=== PATIENT | male | born 1960 | race Caucasian/White ===

== ENCOUNTER → 2016-07-11 | Outpatient (CLI) | payer OTHER | LOC: EXRD 14:22 | DX: M54.6 Pain in thoracic spine (principal); R93.8 Abnormal findings on diagnostic imaging of other specified body structures; M47.894 Other spondylosis, thoracic region; M43.8X4 Other specified deforming dorsopathies, thoracic region | CPT/HCPCS: 71020; 72070 ==

== ENCOUNTER → 2020-03-03 | Outpatient (CLI) | payer MEDICARE, OTHER ==
[2020-03-03 09:58] LABS: RED BLOOD COUNT 5.59 M/UL (4.20-5.50); WHITE BLOOD COUNT 13.4 K/UL (4.5-11.0)
[2020-03-03 10:31] LABS: BUN/CREATININE RATIO 11 (0-10)
== END ==
LOC: LAB 09:34
PROVIDERS: Family Medicine
DX: I10 Essential (primary) hypertension (principal); E78.2 Mixed hyperlipidemia; R73.9 Hyperglycemia, unspecified
CPT/HCPCS: 36415; 80053; 80061; 83036; 83735; 84550; 85027

== ENCOUNTER → 2021-03-30 | Day surgery (SDC) | payer MEDICARE, OTHER ==
[~2021-03-30] MED LIST: BREO ELLIPTA 21 EACH INH; CYMBALTA60 MG PO; HYDROCHLOROTHIA25 MG PO; HYDROXYZINE HCL25 MG PO; KENALOG 0.5% CR15 GM EXT; LIPITOR40 MG PO; METFORMIN HCL1000 M1 PO; NEURONTIN600 MG PO; POTASSIUM CHLO10 MEQ PO; PROTONIX40 MG PO; ULTRAM50 MG PO; VENTOLIN/PROVE0.5 ML INH; ZANAFLEX 4 MG TA4 MG PO; ZESTRIL 40 MG T40 MG PO; ZYRTEC10 M3 PO
== END | disposition home or self-care (01) ==
LOC: OR 03-29 08:30
DX: Z12.11 Encounter for screening for malignant neoplasm of colon (principal); I10 Essential (primary) hypertension; E78.00 Pure hypercholesterolemia, unspecified; E11.9 Type 2 diabetes mellitus without complications; J44.9 Chronic obstructive pulmonary disease, unspecified; F17.210 Nicotine dependence, cigarettes, uncomplicated; Z88.1 Allergy status to other antibiotic agents; Z79.84 Long term (current) use of oral hypoglycemic drugs; Z79.899 Other long term (current) drug therapy; Z20.822 Contact with and (suspected) exposure to COVID-19
CPT/HCPCS: 82962; J2250; J2704; J7030

== ENCOUNTER → 2021-10-05 | Outpatient (CLI) | payer MEDICARE, OTHER | LOC: CT 13:56 | DX: F17.210 Nicotine dependence, cigarettes, uncomplicated (principal); R91.1 Solitary pulmonary nodule | CPT/HCPCS: 71271 ==